=== PATIENT | female | born 2000 | race African-American/Black ===

== ENCOUNTER 2018-06-18 11:11 | Emergency (ER) | payer MEDICAID ==
[~2018-06-18] VITALS: Ht 160 cm; Wt 66.0 kg
[2018-06-18 11:27] VITALS: BP 131/95
[2018-06-18] MEDS ORDERED: FLUORESCEIN SODIUM 1MG/STRIP OP ONE (11:30)
[2018-06-18] MEDS ORDERED: TETRACAINE 0.5% OPHTH DROPS 4ML OP ONE (11:30)
== END 2018-06-18 15:19 | disposition home or self-care (01) ==
LOC: ER 11:11
DX: H66.93 Otitis media, unspecified, bilateral (principal); B30.9 Viral conjunctivitis, unspecified
CPT/HCPCS: 81025; 99283